=== PATIENT | male | born 1985 | race Caucasian/White ===

== ENCOUNTER 2017-02-01 07:43 | Emergency (ER) | payer OTHER ==
[~2017-02-01] VITALS: Ht 167.6 cm; Wt 60.0 kg
[~2017-02-01 07:43] MED LIST: HUMULIN 70 U/ML10 ML SC; HUMULIN R100 U/1 M1 SC; INSULIN; LANTI SQ; LANTUS SOLOS100 U/M1 SQ; LEVOTHYROXIN0.025 MG; MACROBID100 MG PO; METFORMIN ER500 M1 PO; NOVOLIN SC; POTASSIUM20 MEQ; RIS1 PO
[2017-02-01 09:21] LABS: BASOPHIL % 0.3 % (0-2); PLATELET COUNT 192 x10^3mcL (130-400); RED CELL DISTRIBUTION WIDTH 13.5 % (11.5-14.5)
[2017-02-01 09:23] LABS: microscopic required? NO
[2017-02-01 09:33] LABS: CALCIUM 8.8 mg/dL (8.5-10.1); CARBON DIOXIDE 27.1 mmol/L (21-32); CHLORIDE SERUM 109 mmol/L (98-107); CREATININE SERUM 0.8 mg/dL (0.7-1.3); GFR1 > 60 mL/min; GLUCOSE SERUM 205 mg/dL (74-106); SODIUM SERUM 146 mmol/L (136-145)
[2017-02-01 09:37] LABS: ALBUMIN 3.9 g/dL (3.4-5.0); ALKALINE PHOSPHATASE 64 U/L (46-116); ALT/SGPT 34 U/L (16-63); AST/SGOT 41 U/L (15-37); BILIRUBIN TOTAL 0.58 mg/dL (0.20-1.00); TOTAL PROTEIN, SERUM 6.8 g/dL (6.4-8.2)
[2017-02-01 09:39] LABS: urine erythrocyte NEGATIVE (NEGATIVE)
[2017-02-01 11:34] VITALS: BP 108/78
== END 2017-02-01 11:34 | disposition home or self-care (01) ==
LOC: ED 07:43
PROVIDERS: Emergency Medicine
DX: E11.649 Type 2 diabetes mellitus with hypoglycemia without coma (principal); F99 Mental disorder, not otherwise specified; Z79.4 Long term (current) use of insulin
CPT/HCPCS: 36415; 82962

== ENCOUNTER 2018-01-23 08:18 | Inpatient (IN) | payer OTHER ==
[~2018-01-23] VITALS: Ht 167.6 cm; Wt 64.0 kg
[2018-01-23 08:24] VITALS: Ht 167.6 cm; Wt 64.0 kg
[2018-01-23 09:17] LABS: ALBUMIN 4.6 g/dL (3.4-5.0); BILIRUBIN TOTAL 0.98 mg/dL (0.20-1.00); CREATININE SERUM 3.2 mg/dL (0.7-1.3)
[2018-01-23 09:59] LABS: CARBON DIOXIDE 4.8 mmol/L (21-32); TOTAL PROTEIN, SERUM 8.3 g/dL (6.4-8.2)
[2018-01-23 10:14] LABS: PLATELET COUNT 282 x10^3mcL (130-400); RED CELL DISTRIBUTION WIDTH 13.8 % (11.5-14.5)
[2018-01-23 10:56] LABS: BAND NEUTROPHIL 5 % (0-10); MONOCYTE 7 % (0-7); SEGMENTED NEUTROPHILS 81 % (37-75)
[2018-01-23 10:57] LABS: rbc morphology (normal/abnorm) NORMAL (NORMAL)
[2018-01-23 11:42] VITALS: BP 113/63
[2018-01-23 11:57] LABS: microscopic required? YES; urine erythrocyte 2+ (NEGATIVE)
[2018-01-23 12:31] LABS: CALCIUM 7.7 mg/dL (8.5-10.1); CARBON DIOXIDE 12.4 mmol/L (21-32); CREATININE SERUM 2.2 mg/dL (0.7-1.3)
[2018-01-23 14:35] VITALS: BP 121/63
[2018-01-23 15:10] VITALS: BP 114/64
[2018-01-23 15:41] LABS: AMPHETAMINE QUAL UR NONE DETECTED (See below)
[2018-01-23 16:25] LABS: PLATELET COUNT 235 x10^3mcL (130-400); RED CELL DISTRIBUTION WIDTH 13.5 % (11.5-14.5)
[2018-01-23 16:28] LABS: CALCIUM 7.6 mg/dL (8.5-10.1); CARBON DIOXIDE 17.3 mmol/L (21-32); CREATININE SERUM 1.5 mg/dL (0.7-1.3); POTASSIUM SERUM 3.7 mmol/L (3.5-5.1)
[2018-01-23 17:11] LABS: BAND NEUTROPHIL 15 % (0-10); BASOPHIL 0 % (0-2); MONOCYTE 3 % (0-7); SEGMENTED NEUTROPHILS 72 % (37-75); rbc morphology (normal/abnorm) ABNORMAL (NORMAL)
[2018-01-23 17:12] LABS: PLATELET MORPHOLOGY LARGE PLATELET SEEN
[2018-01-23 19:20] VITALS: BP 114/59
[2018-01-23 20:37] LABS: CALCIUM 8.1 mg/dL (8.5-10.1); CARBON DIOXIDE 19.6 mmol/L (21-32); CHLORIDE SERUM 104 mmol/L (98-107); CREATININE SERUM 1.4 mg/dL (0.7-1.3); GFR1 > 60 mL/min; GLUCOSE SERUM 218 mg/dL (74-106); POTASSIUM SERUM 3.5 mmol/L (3.5-5.1); SODIUM SERUM 141 mmol/L (136-145)
[2018-01-23 23:15] VITALS: BP 105/61
[2018-01-24 01:28] LABS: CALCIUM 7.8 mg/dL (8.5-10.1); CARBON DIOXIDE 25.2 mmol/L (21-32); CHLORIDE SERUM 103 mmol/L (98-107); CREATININE SERUM 1.3 mg/dL (0.7-1.3); GFR1 > 60 mL/min; GLUCOSE SERUM 199 mg/dL (74-106); POTASSIUM SERUM 3.2 mmol/L (3.5-5.1); SODIUM SERUM 139 mmol/L (136-145)
[2018-01-24 01:31] LABS: MAGNESIUM 2.1 mg/dL (1.8-2.4); PHOSPHOROUS 1.9 mg/dL (2.5-4.9)
[2018-01-24 03:20] VITALS: BP 107/54
[2018-01-24 04:43] LABS: CARBON DIOXIDE 26.7 mmol/L (21-32); CHLORIDE SERUM 104 mmol/L (98-107); CREATININE SERUM 1.2 mg/dL (0.7-1.3); GFR1 > 60 mL/min; GLUCOSE SERUM 144 mg/dL (74-106); MAGNESIUM 2.1 mg/dL (1.8-2.4); PHOSPHOROUS 1.7 mg/dL (2.5-4.9); SODIUM SERUM 139 mmol/L (136-145)
[2018-01-24 06:10] LABS: PLATELET COUNT 206 x10^3mcL (130-400); RED CELL DISTRIBUTION WIDTH 13.3 % (11.5-14.5)
[2018-01-24 06:15] LABS: BASOPHIL % 0 % (0-2)
[2018-01-24 07:20] VITALS: BP 92/57
[2018-01-24 08:40] LABS: CALCIUM 8.3 mg/dL (8.5-10.1); CARBON DIOXIDE 26.9 mmol/L (21-32); CHLORIDE SERUM 104 mmol/L (98-107); GFR1 > 60 mL/min; GLUCOSE SERUM 156 mg/dL (74-106); MAGNESIUM 2.2 mg/dL (1.8-2.4); PHOSPHOROUS 1.3 mg/dL (2.5-4.9); SODIUM SERUM 139 mmol/L (136-145)
[2018-01-24 08:45] LABS: POTASSIUM SERUM 2.5 mmol/L (3.5-5.1)
[2018-01-24 11:28] VITALS: BP 104/56
[2018-01-24 17:36] VITALS: BP 126/73
[2018-01-24 21:10] VITALS: BP 120/66
[2018-01-25 05:24] VITALS: BP 116/61
[2018-01-25 07:50] LABS: BASOPHIL % 0.2 % (0-2); PLATELET COUNT 159 x10^3mcL (130-400); RED CELL DISTRIBUTION WIDTH 12.9 % (11.5-14.5)
[2018-01-25 08:22] LABS: CALCIUM 8.2 mg/dL (8.5-10.1); CARBON DIOXIDE 28.8 mmol/L (21-32); CHLORIDE SERUM 100 mmol/L (98-107); CREATININE SERUM 0.9 mg/dL (0.7-1.3); GFR1 > 60 mL/min; GLUCOSE SERUM 214 mg/dL (74-106); MAGNESIUM 2.1 mg/dL (1.8-2.4); PHOSPHOROUS 1.9 mg/dL (2.5-4.9); POTASSIUM SERUM 3.1 mmol/L (3.5-5.1); SODIUM SERUM 139 mmol/L (136-145)
[2018-01-25 09:17] VITALS: BP 117/66
[2018-01-25 13:33] VITALS: BP 119/71
[2018-01-25 13:59] VITALS: BP 119/71
== END 2018-01-25 17:03 | disposition home or self-care (01) | DRG 720 ==
LOC: ED 08:18 → IC 09:34 → DU 01-24 17:26
PROVIDERS: Emergency Medicine; Internal Medicine
DX: A41.9 Sepsis, unspecified organism (principal); N17.0 Acute kidney failure with tubular necrosis; E10.10 Type 1 diabetes mellitus with ketoacidosis without coma; E87.1 Hypo-osmolality and hyponatremia; F20.9 Schizophrenia, unspecified; E86.0 Dehydration; E78.5 Hyperlipidemia, unspecified; F17.210 Nicotine dependence, cigarettes, uncomplicated; D72.828 Other elevated white blood cell count; E78.00 Pure hypercholesterolemia, unspecified; J44.9 Chronic obstructive pulmonary disease, unspecified; R33.9 Retention of urine, unspecified; E78.1 Pure hyperglyceridemia; Z83.3 Family history of diabetes mellitus; Z91.19 Patient's noncompliance with other medical treatment and regimen
CPT/HCPCS: 36600; 83880; J0696; J1815; J2405; J2550; J3480; J3490; J7030; J7040; J7620; Q0092